=== PATIENT | female | born 1980 | race Caucasian/White ===

== ENCOUNTER → 2016-10-07 | Outpatient (CLI) | payer OTHER | LOC: EDBD → MW.LAB 11:51 | PROVIDERS: ATTEND Obstetrics & Gynecology | DX: Z31.9 Encounter for procreative management, unspecified (principal); N96 Recurrent pregnancy loss | CPT/HCPCS: 36415; 82670; 83001; 83002; 84146; 84443; 85613; 85730; 86147; 86762 ==

== ENCOUNTER 2016-10-08 06:23 | Day surgery (SDC) | payer OTHER ==
[~2016-10-08 06:23] MED LIST: Lactated Ringers 1,000 ML IV SCH
[2016-10-08] MEDS ORDERED: Propofol 200 MG/20 ML SDV ONE ×2 (07:18→08:03)
[2016-10-08] MEDS ORDERED: Midazolam 1 MG/ML 2 ML SDV ONE (07:18)
[2016-10-08] MEDS ORDERED: fentaNYL 100 MCG/2 ML SDV ONE (07:18)
--- NOTE | 2016-10-08 07:27 | PCM.PREANE ---
Preanesthetic Assessment - Procedure Proposed Procedure: EGD and Colonoscopy - Anesthesia/Transfusion/Family Hx Anesthesia History: No Prior Anesthesia Transfusion History: No Prior Transfusion(s) Intubation History: Unknown - Review of Systems General: No Symptoms Pulmonary: No Symptoms Cardiovascular: No Symptoms Gastrointestinal: No symptoms, Other (GERD - treated, bloating ?IBS) Neurological: No Symptoms Other: Reports: Depression, Anxiety - Physical Assessment NPO Status Date: 10/07/16 NPO Status Time: 23:30 O2 Sat by Pulse Oximetry: 97 Respiratory Rate: 16 Vital Signs: Last Vital Signs Temp 97.2 F 10/08/16 06:52 Pulse 76 10/08/16 06:52 Resp 16 10/08/16 06:52 BP 120/86 10/08/16 06:52 Pulse Ox 97 10/08/16 06:52 Height: 5 ft 4.5 in Weight: 161 lb ASA Class: 2 Mental Status: Alert & Oriented x3 Airway Class: Mallampati = 1 Dentition: Reports: Normal Dentition Thyro-Mental Finger Breadths: 3 Mouth Opening Finger Breadths: 3 ROM/Head Extension: Full Lungs: Clear to auscultation, Normal respiratory effort Cardiovascular: Regular Rate, Regular Rhythm, No Murmurs - Lab Values: Laboratory Last Values HCG, Qual NEGATIVE (NEG) 10/08/16 06:36 - Allergies Allergies/Adverse Reactions: Allergies Allergy/AdvReac Type Severity Reaction Status Date / Time No Known Allergies Allergy Verified 01/24/15 18:59 - Blood Blood Available: No Product(s) Available: None - Anesthesia Plan Pre-Op Medication Ordered: None - Acknowledgements Anesthesia Type Planned: MAC Pt an Appropriate Candidate for the Planned Anesthesia: Yes Alternatives and Risks of Anesthesia Discussed w Pt/Guardian: Yes Pt/Guardian Understands and Agrees with Anesthesia Plan: Yes PreAnesthesia Questionnaire Gastrointestinal History: Reports: GERD Psychiatric History: Reports: Anxiety, Depression Dermatologic History: Reports: Psoriasis - Past Surgical History Head Surgeries/Procedures: Reports: None - SUBSTANCE USE Smoking Status *Q: Never Smoker Recreational Drug Use History: No - HOME MEDS Home Medications: Home Meds Escitalopram Oxalate 10 mg PO DAILY 10/03/16 [History] Pantoprazole Sodium 40 mg PO DAILY 10/03/16 [History] metroNIDAZOLE [Vandazole 0.75% Gel] 1 applic TOP BID 10/03/16 [History] - CURRENT (IN HOUSE) MEDS Current Meds: Current Medications Lactated Ringer's (Ringers, Lactated) 1,000 mls @ 125 mls/hr IV ASDIRECTED [facility] Last Admin: 10/08/16 06:52 Dose: 125 mls/hr Discontinued Medications Fentanyl (Sublimaze) Confirm Administered Dose 100 mcg .ROUTE .STK-MED ONE Stop: 10/08/16 07:19 Midazolam HCl (Versed 1 Mg/Ml) Confirm Administered Dose 2 mg .ROUTE .STK-MED ONE Stop: 10/08/16 07:19 Propofol (Diprivan 20 Ml) Confirm Administered Dose 200 mg .ROUTE .STK-MED ONE Stop: 10/08/16 07:19 Preanesthetic Assessment - ANESTHESIA/TRANSFUSION/FAMILY HX Family History of Anesthesia Reaction: No - PHYSICAL ASSESSMENT O2 Sat by Pulse Oximetry: 97 RR: 16 Vital Signs: Last Vital Signs Temp 97.2 F 10/08/16 06:52 Pulse 76 10/08/16 06:52 Resp 16 10/08/16 06:52 BP 120/86 10/08/16 06:52 Pulse Ox 97 10/08/16 06:52 Height: 5 ft 4.5 in Weight: 161 lb NPO Status Date: 10/07/16 NPO Status Time: 23:30 - LAB Values: Laboratory Last Values HCG, Qual NEGATIVE (NEG) 10/08/16 06:36 - ALLERGIES Allergies/Adverse Reactions: Allergies Allergy/AdvReac Type Severity Reaction Status Date / Time No Known Allergies Allergy Verified 01/24/15 18:59
--- NOTE | 2016-10-08 08:26 | PCM.OPNOTE ---
- General Post-Op/Procedure Note Date of Surgery/Procedure: 10/08/16 Operative Procedure(s): egd w bx. colonoscopy w bx Findings: see dict [id number] Pre Op Diagnosis: dysphagia and change in bowel habits Post-Op Diagnosis: Same Anesthesia Technique: Moderate sedation Primary Surgeon: Buster Ray Pathology: egd bx and aphthus ulcer Complications: None Condition: Good
[2016-10-08 08:51] VITALS: BP 100/60
--- NOTE | 2016-10-08 08:59 | PCM.POSTAN ---
POST ANESTHESIA ASSESSMENT - MENTAL STATUS Mental Status: alert, oriented - RESPIRATORY Respiratory Status: respiratory rate WNL, airway patent, O2 saturation stable - CARDIOVASCULAR CV Status: pulse rate WNL, blood pressure stable - GASTROINTESTINAL GI Status: no symptoms - PAIN Pain Score: 0 - POST OP HYDRATION Hydration Status: adequate & stable
--- NOTE | 2016-10-08 09:03 | PCM48HPAN ---
Post Anesthesia Note - EVALUATION WITHIN 48HRS OF ANESTHETIC Vital Signs in Normal Range: Yes Patient Participated in Evaluation: Yes Respiratory Function Stable: Yes Airway Patent: Yes Cardiovascular Function Stable: Yes Hydration Status Stable: Yes Pain Control Satisfactory: Yes Nausea and Vomiting Control Satisfactory: Yes Mental Status Recovered: Yes
--- NOTE | 2016-10-08 14:21 | OR ---
SURGEON: Buster Ray MD DATE OF PROCEDURE: 10/08/2016 PREOPERATIVE DIAGNOSES: Change in bowel habit, abdominal pain, dysphagia. POSTOPERATIVE DIAGNOSES: 1. Esophagogastroduodenoscopy diagnosis is acid reflux. 2. Colonoscopy diagnosis is aphthous ulcer. PROCEDURES PERFORMED: 1. Esophagogastroduodenoscopy with biopsy. 2. Colonoscopy with biopsy. DESCRIPTION OF PROCEDURE: EGD: The patient was taken to the endoscopy room, and with the SUPERVISOR [employer]ING REPAIR, Diprivan was administered. A well-lubricated EGD scope was gently inserted through the oropharynx, down the esophagus, passing through the gastroesophageal junction, into the stomach. The mucosa was examined upon the passage. Any etiology will be noted. Once in the stomach, we continued to advance to the distal antrum, passed through the pylorus into the second portion of the duodenum. Again, the mucosa was examined for any abnormality and etiology. The scope was then retrieved back to the stomach and then retroflexed to look at the fundus of the stomach. If a biopsy was indicated, we will biopsy the antrum, body, and gastroesophageal junction. The air will be sucked out while the scope is retrieved to reduce the patient's discomfort. The patient tolerated the procedure well. There were no intraoperative complications. Dr. Ray was present through the whole procedure. Prior to surgery, a time-out had been called, the patient identified, procedure identified and antibiotic administered. Colonoscopy: The patient was taken to the endoscopy room. A time out was called, patient identified, and procedure identified. Diprivan was then administrated. Patient went from awake to sleep, hearing doctor talking or door closing is normal. Perineum inspection and digital examination were then performed. A well-lubricated colonoscope was gently inserted through the rectum, advanced past the rectosigmoid junction, the descending colon, splenic flexure, transverse colon, hepatic flexure, ascending colon, arrived to the cecum. Cecum was identified as dictated in the finding. Then the scope was carefully withdrawn while attention was paid to the mucosal surface for any abnormality. Air will be sucked out during the scope withdrawal. At the rectum, retroflexed to examine any rectal diseases, fistula or hemorrhoids. During mucosal examination, and biopsy performed on abnormal appearance and random biopsy too for abd pain. Patient tolerated procedure well. There were no intraoperative complications, and Dr. Ray was present throughout the whole procedure. FINDINGS: EGD finding: The patient is easily sedated with [employer]PAIR and Diprivan. The patient is soundly snoring and oropharynx is grossly normal in appearance. No stricture narrow varicosity or inflammation. Distal esophagus GE junction at 40 shows mild change, salmon color change suggests mild acid reflux. Stomach rugae is very healthy in looking and no bile, no food particles. An antrum is slightly inflamed and no ulceration or blood. Duodenum was grossly normal in appearance. The scope was retrieved back to the stomach. Retroflexed to look at the fundus and stomach. There is no hiatal hernia or other etiology. Biopsy done at the antrum, body, and GE junction at 40 and sucked out the air while scope pulling out. Colonoscopy findin. The patient is easily sedated with SU[employer]PAIR and Diprivan. The patient is soundly snoring. 2. Bowel prep is average to better than average, very little liquid stool. No semi-formed stool. 3. The patient's colon was rather straight forward. Cecum indicated by ileocecal fold, one-to-one indentation, light emittance. Appendix orifice is not observed. Mucosa was examined upon scope pulling out and the patient does not have diverticulosis, polyp, mass, growth, stricture, ulceration, bleeding, AV malformation. The patient has many white dots in the right colon, looked like it is aphthous ulcer. One biopsy done and also random biopsy done on colon and then going all the way to the rectum, the patient has mild external hemorrhoid. No internal hemorrhoids. The patient would benefit from repeat colonoscopy 10 years from today or if clinically indicated otherwise or if the biopsy indicated otherwise. As always, thank you for the kind referral. WILDER CARR /[id number] JARED
== END 2016-10-08 09:00 | disposition home or self-care (01) ==
LOC: EDBD → MW.SDS 06:23
PROVIDERS: ATTEND Surgery
PROC: 0DB48ZX Excision of Esophagogastric Junction, Via Natural or Artificial Opening Endoscopic, Diagnostic (ICD-10-PCS; principal; 2016-10-08)
PROC: 0DB68ZX Excision of Stomach, Via Natural or Artificial Opening Endoscopic, Diagnostic (ICD-10-PCS; 2016-10-08)
PROC: 0DBE8ZX Excision of Large Intestine, Via Natural or Artificial Opening Endoscopic, Diagnostic (ICD-10-PCS; 2016-10-08)
DX: K29.50 Unspecified chronic gastritis without bleeding (principal); J30.9 Allergic rhinitis, unspecified; K21.9 Gastro-esophageal reflux disease without esophagitis; Z79.899 Other long term (current) drug therapy
CPT/HCPCS: 43239; 45380; 84703; 88305; 88312; J2250; J3010; J7120; 00740; J2704

== ENCOUNTER → 2016-10-14 | Outpatient (CLI) | payer OTHER ==
[~2016-10-14] MED LIST changes: +Iopamidol 612 MG/ML 30 ML SDV IUTERINE STA; -Lactated Ringers 1,000 ML IV SCH
--- NOTE | 2016-10-14 16:05 | US ---
EXAMINATION: Hysterosalpingogram. HISTORY: Infertility. Evaluate for tubal patency. PROCEDURE/FINDINGS: Written informed consent was obtained from the patient. Perineum was prepped wit h Betadine and after placement of vaginal speculum, the cervix was prepped with Betadine. A 5 Moldovan catheter was placed and after inflation of the balloon, 15 cc of contrast was injected until cornua l regions are filled and multiple views of the pelvis are obtained. The uterine cavity is normal in configuration. No suspicious filling defects are seen. Small cystic spaces and diverticula are noted within the isthmic and ampullary regions of the fallop tammi tubes bilaterally. The ampulla and infundibulum of the left leading to it is notably dilated. Th ere is free spillage noted on the right, no free spillage is noted on the left. IMPRESSION: 1. Bilateral salpingitis isthmica nodosa. 2. Severe hydrosalpinx of the mid to infundibular left fallopian tube. 3. Free spillage of contrast is noted on the right only.
== END ==
LOC: EDBD 10:26 → MW.DI 10:26
PROVIDERS: ATTEND Obstetrics & Gynecology
DX: Z31.9 Encounter for procreative management, unspecified (principal); N70.11 Chronic salpingitis
CPT/HCPCS: 58340; 74740; C2628; Q9967

== ENCOUNTER 2016-11-21 07:59 | Day surgery (SDC) | payer OTHER ==
[2016-11-20 11:57] LABS: CHLORIDE,CL 104 mmol/L (98-110); SODIUM,NA 139 mmol/L (136-146)
[~2016-11-21 07:59] MED LIST changes: -Iopamidol 612 MG/ML 30 ML SDV IUTERINE STA; +Lactated Ringers 1,000 ML IV SCH; +Sodium Chloride 0.9% 10 ML Syringe FLUSH PRN; +Sodium Chloride 0.9% 2.5 ML Syringe FLUSH PRN
--- NOTE | 2016-11-21 08:34 | PCM.PREANE ---
Preanesthetic Assessment - Anesthesia/Transfusion/Family Hx Anesthesia History: Prior Anesthesia Without Reaction Family History of Anesthesia Reaction: No Transfusion History: No Prior Transfusion(s) Intubation History: Unknown - Review of Systems General: No Symptoms Pulmonary: No Symptoms Cardiovascular: No Symptoms Gastrointestinal: Abdominal pain Neurological: No Symptoms Other: Reports: None - Physical Assessment O2 Sat by Pulse Oximetry: 94 Respiratory Rate: 16 Vital Signs: Last Vital Signs Temp 36.1 C 11/21/16 08:07 Pulse 70 11/21/16 08:07 Resp 16 11/21/16 08:07 BP 113/67 11/21/16 08:07 Pulse Ox 94 L 11/21/16 08:07 Height: 1.64 m Weight: 73.936 kg ASA Class: 2 Mental Status: Alert & Oriented x3 Airway Class: Mallampati = 2 Dentition: Reports: Normal Dentition Thyro-Mental Finger Breadths: 3 Mouth Opening Finger Breadths: 3 ROM/Head Extension: Full Lungs: Clear to auscultation, Normal respiratory effort Cardiovascular: Regular Rate, Regular Rhythm - Lab Values: Laboratory Last Values WBC 5.64 K/uL (4.0-11.0) 11/20/16 08:48 RBC 4.48 M/uL (4.30-5.90) 11/20/16 08:48 Hgb 13.6 g/dL (12.0-16.0) 11/20/16 08:48 Hct 40.9 % (36.0-46.0) 11/20/16 08:48 MCV 91.3 fL (80.0-98.0) 11/20/16 08:48 MCH 30.4 pg (27.0-32.0) 11/20/16 08:48 MCHC 33.3 g/dL (31.0-37.0) 11/20/16 08:48 RDW Std Deviation 42.7 fl (28.0-62.0) 11/20/16 08:48 RDW Coeff of Gill 13 % (11.0-15.0) 11/20/16 08:48 Plt Count 299 K/uL (150-400) 11/20/16 08:48 MPV 10.50 fL (7.40-12.00) 11/20/16 08:48 Nucleated RBC % 0.0 /100WBC 11/20/16 08:48 Nucleated RBCs # 0 K/uL 11/20/16 08:48 Sodium 139 mmol/L (136-146) 11/20/16 11:18 Potassium 4.5 mmol/L (3.5-5.1) 11/20/16 11:18 Chloride 104 mmol/L (98-110) 11/20/16 11:18 Carbon Dioxide 25 mmol/L (21-31) 11/20/16 11:18 BUN 11 mg/dL (6.0-23.0) 11/20/16 11:18 Creatinine 1.0 mg/dL (0.6-1.5) 11/20/16 11:18 Est Cr Clr Drug Dosing 68.57 mL/min 11/20/16 11:18 Estimated GFR (MDRD) > 60.0 ml/min 11/20/16 11:18 Glucose 95 mg/dL (60-110) 11/20/16 11:18 Calcium 9.6 mg/dL (8.8-10.8) 11/20/16 11:18 HCG, Qual NEGATIVE (NEG) 11/20/16 11:18 Blood Type O POSITIVE 11/20/16 11:18 Antibody Screen NEGATIVE 11/20/16 11:18 - Allergies Allergies/Adverse Reactions: Allergies Allergy/AdvReac Type Severity Reaction Status Date / Time No Known Allergies Allergy Verified 01/24/15 18:59 - Blood Blood Available: No - Anesthesia Plan Pre-Op Medication Ordered: None - Acknowledgements Anesthesia Type Planned: General Anesthesia Pt an Appropriate Candidate for the Planned Anesthesia: Yes Alternatives and Risks of Anesthesia Discussed w Pt/Guardian: Yes Pt/Guardian Understands and Agrees with Anesthesia Plan: Yes PreAnesthesia Questionnaire HEENT History: Reports: Allergic Rhinitis Gastrointestinal History: Reports: GERD GAMING DIRECTOR History: Reports: Spontaneous , Other (See Below) (infertility) Psychiatric History: Reports: Anxiety, Depression Dermatologic History: Reports: Psoriasis - Past Surgical History Head Surgeries/Procedures: Reports: None GI Surgical History: Reports: Colonoscopy, EGD - SUBSTANCE USE Smoking Status *Q: Never Smoker Recreational Drug Use History: No - HOME MEDS Home Medications: Home Meds Escitalopram Oxalate 10 mg PO DAILY 10/03/16 [History] Pantoprazole Sodium 40 mg PO DAILY 10/03/16 [History] - CURRENT (IN HOUSE) MEDS Current Meds: Current Medications Lactated Ringer's (Ringers, Lactated) 1,000 mls @ 125 mls/hr IV ASDIRECTED [facility] Last Admin: 11/21/16 08:10 Dose: 125 mls/hr Sodium Chloride (Saline Flush) 10 ml FLUSH ASDIRECTED PRN PRN Reason: Keep Vein Open Sodium Chloride (Saline Flush) 2.5 ml FLUSH ASDIRECTED PRN PRN Reason: Keep Vein Open
[2016-11-21] MEDS ORDERED: Methylene Blue 50 MG/10 ML Ampule IV ONE ×2 (09:59→10:00)
[2016-11-21] MEDS ORDERED: Propofol 200 MG/20 ML SDV ONE (10:03)
[2016-11-21] MEDS ORDERED: Lidocaine 2% 5 ML SDV ONE (10:03)
[2016-11-21] MEDS ORDERED: fentaNYL 250 MCG/5 ML SDV ONE (10:03)
[2016-11-21] MEDS ORDERED: Midazolam 1 MG/ML 2 ML SDV ONE (10:03)
[2016-11-21] MEDS ORDERED: Rocuronium 10 MG/ML 10 ML Syringe ONE (10:04)
[2016-11-21] MEDS ORDERED: Ketorolac 30 MG/ML SDV ONE (10:04)
[2016-11-21] MEDS ORDERED: Ondansetron 4 MG/2 ML SDV ONE (10:04)
[2016-11-21] MEDS ORDERED: Neostigmine Methylsulfate 1 MG/ML 5 ML Syringe ONE (10:04)
[2016-11-21] MEDS ORDERED: fentaNYL 100 MCG/2 ML SDV ONE (11:01)
[2016-11-21] MEDS ORDERED: Octyl 2-Cyanoacrylate 1 Tube ONE (11:32)
[2016-11-21] MEDS ORDERED: Acetaminophen/oxyCODONE 325-5 MG Tab PO PRN ×2 (11:35)
[2016-11-21] MEDS ORDERED: Ketorolac 30 MG/ML SDV IVPUSH ONE (11:35)
[2016-11-21] MEDS ORDERED: Ondansetron 4 MG/2 ML SDV IVPUSH PRN (11:35)
[2016-11-21] MEDS ORDERED: Morphine 4 MG/ML Syringe IVPUSH PRN (11:35)
[2016-11-21] MEDS ORDERED: Promethazine 25 MG/ML SDV IM PRN (11:35)
[2016-11-21] MEDS ORDERED: Morphine 2 MG/ML Syringe IVPUSH PRN (11:35)
[2016-11-21] MEDS ORDERED: Ketorolac 30 MG/ML SDV IVPUSH PRN (11:35)
--- NOTE | 2016-11-21 11:40 | PCM.OPNOTE ---
- General Post-Op/Procedure Note Date of Surgery/Procedure: 11/21/16 Operative Procedure(s): Dignostis laparoscopy Findings: pelvic adhesion Pre Op Diagnosis: Pelvic pain Post-Op Diagnosis: Same Anesthesia Technique: General ET tube Primary Surgeon: Wilner Clements Digital Marketing Assistant: Smitha Henderson Complications: None Condition: Good
--- NOTE | 2016-11-21 11:41 | PCM.DCSUM1 ---
Discharge Summary - Discharge Data Discharge Date: 11/21/16 Discharge Disposition: Home, Self-Care 01 Condition: Good - Patient Summary/Data Operative Procedure(s) Performed: Dignostis laparoscopy - Patient Instructions Diet: Usual Diet as Tolerated Showering/Bathing: May Shower Wound/Incision Care: Keep Operative Site/Wound Site Clean and Dry Notify Provider of: Fever, Increased Pain, Swelling and Redness, Nausea and/or Vomiting - Discharge Plan Home Medications: Home Meds Escitalopram Oxalate 10 mg PO DAILY 10/03/16 [History] Pantoprazole Sodium 40 mg PO DAILY 10/03/16 [History] - General Info Date of Service: 11/21/16 Functional Status: Reports: pain controlled - Review of Systems General: Reports: No Symptoms HEENT: Reports: no symptoms Pulmonary: Reports: no symptoms Cardiovascular: Reports: No Symptoms Gastrointestinal: Reports: No symptoms Genitourinary: Reports: no symptoms Musculoskeletal: Reports: no symptoms Skin: Reports: no symptoms Neurological: Reports: No Symptoms Psychiatric: Reports: no symptoms - Patient Data Vitals - Most Recent: Last Vital Signs Temp 36.1 C 11/21/16 08:07 Pulse 70 11/21/16 08:07 Resp 16 11/21/16 08:34 BP 113/67 11/21/16 08:07 Pulse Ox 94 L 11/21/16 08:34 Weight - Most Recent: 73.936 kg Lab Results - Last 24 hrs: Laboratory Results - last 24 hr 11/20/16 11/20/16 11/20/16 Range/Units 11:18 11:18 11:18 Sodium 139 (136-146) mmol/L Potassium 4.5 (3.5-5.1) mmol/L Chloride 104 (98-110) mmol/L Carbon Dioxide 25 (21-31) mmol/L BUN 11 (6.0-23.0) mg/dL Creatinine 1.0 (0.6-1.5) mg/dL Est Cr Clr Drug Dosing 68.57 mL/min Estimated GFR (MDRD) > 60.0 ml/min Glucose 95 (60-110) mg/dL Calcium 9.6 (8.8-10.8) mg/dL HCG, Qual NEGATIVE (NEG) Blood Type O POSITIVE Antibody Screen NEGATIVE Med Orders - Current: Current Medications Lactated Ringer's (Ringers, Lactated) 1,000 mls @ 125 mls/hr IV ASDIRECTED [facility] Last Admin: 11/21/16 08:10 Dose: 125 mls/hr Ketorolac Tromethamine (Toradol) 30 mg IVPUSH Q6H PRN PRN Reason: Pain (severe 7-10) Stop: 11/26/16 11:35 Morphine Sulfate (Morphine) 2 mg IVPUSH Q2H PRN PRN Reason: Pain (severe 7-10) Morphine Sulfate (Morphine) 4 mg IVPUSH Q2H PRN PRN Reason: Pain (severe 7-10) Ondansetron HCl (Zofran) 4 mg IVPUSH Q6H PRN PRN Reason: Nausea/Vomiting Oxycodone/Acetaminophen (Percocet 325-5 Mg) 1 tab PO Q4H PRN PRN Reason: Pain (moderate 4-6) Oxycodone/Acetaminophen (Percocet 325-5 Mg) 2 tab PO Q4H PRN PRN Reason: Pain (moderate 4-6) Promethazine HCl (Phenergan) 25 mg IM Q6H PRN PRN Reason: Nausea/Vomiting Sodium Chloride (Saline Flush) 10 ml FLUSH ASDIRECTED PRN PRN Reason: Keep Vein Open Sodium Chloride (Saline Flush) 2.5 ml FLUSH ASDIRECTED PRN PRN Reason: Keep Vein Open Discontinued Medications Fentanyl (Sublimaze) Confirm Administered Dose 250 mcg .ROUTE .STK-MED ONE Stop: 11/21/16 10:04 Fentanyl (Sublimaze) Confirm Administered Dose 100 mcg .ROUTE .STK-MED ONE Stop: 11/21/16 11:02 Glycopyrrolate () Confirm Administered Dose 1 mg .ROUTE .STK-MED ONE Stop: 11/21/16 10:05 Ketorolac Tromethamine (Toradol) Confirm Administered Dose 30 mg .ROUTE .STK- MED ONE Stop: 11/21/16 10:05 Ketorolac Tromethamine (Toradol) 30 mg IVPUSH ONETIME ONE Stop: 11/21/16 11:36 Lidocaine (Xylocaine-Mpf 2%) Confirm Administered Dose 10 ml .ROUTE .STK-MED ONE Stop: 11/21/16 10:04 Methylene Blue (Provayblue) Confirm Administered Dose 50 mg IV .STK-MED ONE Stop: 11/21/16 10:00 Methylene Blue (Provayblue) Confirm Administered Dose 50 mg IV .STK-MED ONE Stop: 11/21/16 10:01 Midazolam HCl (Versed 1 Mg/Ml) Confirm Administered Dose 2 mg .ROUTE .STK-MED ONE Stop: 11/21/16 10:04 Neostigmine Methylsulfate (Neostigmine) Confirm Administered Dose 5 mg .ROUTE .STK-MED ONE Stop: 11/21/16 10:05 Octyl Cyanoacrylate (Dermabond Advance) Confirm Administered Dose 1 applic .ROUTE .STK-MED ONE Stop: 11/21/16 11:33 Ondansetron HCl (Zofran) Confirm Administered Dose 4 mg .ROUTE .STK-MED ONE Stop: 11/21/16 10:05 Propofol (Diprivan 20 Ml) Confirm Administered Dose 400 mg .ROUTE .STK-MED ONE Stop: 11/21/16 10:04 Rocuronium [place] (Zemuron) Confirm Administered Dose 100 mg .ROUTE .STK-MED ONE Stop: 11/21/16 10:05 - Exam General: Reports: alert, oriented HEENT: Reports: Pupils equal, Pupils reactive, EOMI, Mucous membr. moist/pink Neck: Reports: supple Lungs: Reports: Clear to auscultation, Normal respiratory effort Cardiovascular: Reports: Regular Rate, Regular Rhythm Abdomen: Reports: bowel sounds present, soft, no tenderness, no distension (Female) Exam: Normal External Exam, Normal Speculum Exam, Normal Bimanual Exam Rectal (Female) Exam: Normal Exam, Normal Rectal Tone Back Exam: Reports: Normal Inspection, Full Range of Motion Extremities: Reports: no edema, normal pulses Skin: Reports: warm, dry, intact Wound/Incisions: Reports: healing well Neurological: Reports: no new focal deficit Psy/Mental Status: Reports: alert, normal affect, normal mood *Q Meaningful Use (DIS) - VTE *Q VTE Criteria *Q: - Stroke *Q Stroke Criteria *Q: - AMI *Q AMI Criteria *Q:
[2016-11-21] MEDS ORDERED: fentaNYL 100 MCG/2 ML SDV IVPUSH PRN (12:06)
[2016-11-21 13:38] VITALS: BP 108/64
--- NOTE | 2016-11-21 18:22 | OR ---
SURGEON: Wilner Clements MD DATE OF PROCEDURE: 11/21/2016 PREOPERATIVE DIAGNOSIS: Pelvic pain, infertility. POSTOPERATIVE DIAGNOSIS: Pelvic pain, infertility. OPERATION PERFORMED: Multiple puncture diagnostic laparoscopy, extensive lysis of adhesion, chromotubation, left salpingectomy. DIPLOMATIC INTERPRETER: ERIN Mesa. ANESTHESIA: General endotracheal intubation, Dr. Raya and Juan Ramon Greene. ESTIMATED BLOOD LOSS: Less than 25 mL. COMPLICATIONS: None. FINDINGS: The patient had extensive pelvic adhesion from probably previous pelvic inflammatory disease. The right tube after lysing of adhesions and reasonably freeing it, there was no spillage of the dye from the tubes. The left tube, there was extensive pelvic adhesions and there was hydrosalpinx and was totally destroyed requiring left salpingectomy. The uterus was normal. Both ovaries were essentially normal. The patient was at high risk of tubal once she achieves spontaneous and she probably could be a good candidate for in-vitro fertilization. INDICATION: This patient is referred to our clinic for evaluation of infertility and pelvic pain. By ultrasound, she had a left hydrosalpinx. The patient is admitted for a diagnostic laparoscopy with removing of the left tube because of the hydrosalpinx and lysing of adhesion. PROCEDURE IN DETAIL: The patient was brought to the OR, properly identified, and after adequate level of anesthesia, the patient was placed in lithotomy position, prepped and draped in sterile fashion as usual. Straight catheter was used to empty the bladder and the Lissa manipulator was placed in the uterus for manipulation and injection of the dye. Procedure shifted abdominally. Stab wound done beneath the umbilicus. The Veress needle was placed in the peritoneal cavity and that cavity insufflated 6 L of carbon dioxide. The skin incision large to accommodate 5 mm trocar and then the scope through it utilizing the Visiport technique to enter the abdomen. Once we did that, a 10-12 trocar placed in the left iliac fossa and 5 mm trocar in the right iliac fossa. We started by doing a thorough pelvic irrigation and exploring the pelvis. The patient did have extensive adhesion around the left tubes and ovary and the left tube was totally destroyed with a rather large hydrosalpinx requiring removing the left tubes. The right tube was reasonably looking okay on the outside, however, there was adhesion with omentum and that was lysed without any problem and the left tube and the right tube and ovary freed from adhesion; however, doing a chromotubation there was no spillage of the dye from the tubes and could represent a tubal occlusion. After exploring the pelvis and assessed the above noted finding, we used a fine scissor dissection to lyse the adhesion and also I used the Harmonic scalpel judiciously to lyse the adhesion and using the Harmonic scalpel, the left tube was removed and achieving left salpingectomy without any problem. Then after lysing all the adhesions from the pelvis and reasonably freeing the right tube chromotubation attempted, there was no spillage of the dye from the right tube at this time, which is possibly could indicate tubal occlusion. After that thorough irrigation of the pelvis, there was no oozing, no bleeding, and the procedure was ended. The instrument hardware was retrieved from the abdomen and the vagina and the multiple laparoscopic incision was closed in layer. The patient tolerated the procedure well, went to recovery room in stable and general condition. ALISE / LILLY /[id number]
== END 2016-11-21 12:13 | disposition home or self-care (01) ==
LOC: MW.SDS 07:59
PROVIDERS: ATTEND Obstetrics & Gynecology
PROC: 0UT64ZZ Resection of Left Fallopian Tube, Percutaneous Endoscopic Approach (ICD-10-PCS; principal; 2016-11-21)
DX: N70.11 Chronic salpingitis (principal); N73.6 Female pelvic peritoneal adhesions (postinfective); N97.9 Female infertility, unspecified; K21.9 Gastro-esophageal reflux disease without esophagitis; Z79.899 Other long term (current) drug therapy
CPT/HCPCS: 36415; 58661; 80048; 84703; 85027; 86850; 86900; 86901; 88305; A9270; J1885; J2250; J2405; J3010; J7120; Q9968; 00840; J2704

== ENCOUNTER 2021-04-22 12:28 | Emergency (ER) | payer BC, OTHER ==
--- NOTE | 2021-04-22 13:46 | EDM.PDOC ---
ED HPI GENERAL MEDICAL PROBLEM - General Chief Complaint: Respiratory Problem Stated Complaint: COVID SYMPTOMS Time Seen by Provider: 04/22/21 13:27 Source of Information: Reports: Patient History Limitations: Reports: No Limitations - History of Present Illness INITIAL COMMENTS - FREE TEXT/NARRATIVE: HISTORY AND PHYSICAL: History of present illness: The patient is a 1-year-old female who presents to the emergency department for complaints of a known positive Covid test that was done and it in [facility] ER. The patient states that the test was done on Friday and her had some kind of heart attack after being diagnosed with COVID and required to be flown out. The patient states that she thought she should follow-up to see if there is any kind of treatment for her or her daughter. The patient has Covid symptoms such as decreased appetite and general malaise. The patient has not been taking any kind of Motrin or Tylenol but has been taking Mucinex. The dewey ent is a prediabetic and takes Metformin. She has no other risk factors. The patient denies any kind of shortness of breath. She states that she has a mild cough. Patient denies any fever, chills, headache, change in vision, syncope or near syncope. Denies any chest pain, or back pain. Denies any abdominal pain, nausea, vomiting, diarrhea, constipation or dysuria. Has not noted any blood in urine or stool. Review of systems: As per history of present illness and below otherwise all systems reviewed and negative. Past medical history: As per history of present illness and as reviewed below otherwise noncontributory. Surgical history: As per history of present illness and as reviewed below otherwise noncontributory. Social history: See social history for further information Family history: As per history of present illness and as reviewed below otherwise noncontributory. Physical exam: General: Well developed and well nourished. Alert and orientated x 3. Nontoxic in appearance and in no acute distress. Vital signs are stable and have been reviewed by me. Nursing notes were reviewed. HEENT: Atraumatic, normocephalic, pupils equal and reactive bilaterally, negative for conjunctival pallor or scleral icterus, mucous membranes moist, TMs normal bilaterally, throat clear, neck supple, nontender, trachea midline. No drooling or trismus noted. No meningeal signs. No hot potato voice noted. Lungs: Clear to auscultation bilaterally. No wheezes, rales, or rhonchi. Chest nontender. Normal work of breathing, no accessory muscles used. Heart: S1S2, regular rate and rhythm without overt murmur, gallops, or rubs. No JVD. No peripheral edema Abdomen: Soft, nondistended, nontender. Normoactive bowel sounds. Negative for masses or costovertebral tenderness. Skin: Intact, warm, dry. No lesions or rashes noted. Hematologic: No petechiae or purpra. Mucosa appropriate color and normal nail bed color and refill. Extremities: Atraumatic, moves all extremities per self without difficulty or deficits, negative for cords or calf pain. Neurovascular unremarkable. Neuro: Awake, alert, oriented. Cranial nerves II through XII unremarkable. Cerebellum unremarkable. Motor and sensory unremarkable throughout. Exam nonfocal. Psychiatric: Mood and affect are appropriate. Normal thought process. Answering questions appropriately. Notes: *This patient was seen and evaluated during the 2019 SARS-CoV-2 novel coronavirus pandemic period. Community viral transmission is ongoing at time of this encounter and the emergency department is operating under pandemic response procedures. Stated above the patient is a 41-year-old female who presents to the emergency room with positive Covid. The patient's symptoms are relatively mild and she is doing quite well. She is just concerned due to her 's reaction to COVID- 19 for which he had to be flown out due to type of heart condition. The patient is prediabetic but has no other risk factors. She does not meet the monoclonal antibody criteria. I educated the patient on ported measures and symptoms control. The patient states that she has not been taking Tylenol or Motrin but has been taking Mucinex. The patient verbalized understanding of not qualifying for the monoclonal antibodies. I did instruct the patient to get an portable oxygen saturation device to monitor her saturation. I instructed her to return to the emergency department if her oxygen saturation dips below 90%. I have talked with the patient about today's findings, in addition to providing specific details for plan of care. Reassessment at the time of disposition demonstrates that the patient is in no acute distress. The patient is stable for discharge, counseling was provided and we discussed in great detail signs and symptoms that would prompt them to return to the Emergency Department. Medication, follow up and supportive care measures were reviewed and discussed. Voices understanding and is agreeable to plan of care. Denies any further questions or concerns at this time. Impression: COVID-19 Plan: 1. You were evaluated today on an emergent basis. Your complaints of Covid positive and possible treatment was evaluated. You are prediabetic and did not have significant symptoms or risk factors to warrant a monoclonal antibody. I would advise you to get plenty fluids and rest. You can use Tylenol or Motrin as needed for the aches and pain of Covid. As we discussed you need to get a portable oxygen saturation device to monitor your oxygen level. If it drifts below 90% you need to come into the emergency department. You need to continue your self-isolation. 2. You can alternate Tylenol and ibuprofen as needed for pain and fever management. 3. We encourage you to follow up with your primary care provider and/or recommended specialist in the next few days for re-evaluation and further care/management. 4. If your symptoms should worsen, new symptoms develop or any of the signs and symptoms we discussed should arise please return to the emergency room or call 911 (if needed). Definitive disposition and diagnosis as appropriate pending reevaluation and review of above. - Related Data Allergies Allergy/AdvReac Type Severity Reaction Status Date / Time No Known Allergies Allergy Verified 04/22/21 13:19 Home Meds: Home Meds . 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 ED EXAM, GENERAL - Physical Exam Exam: See Below (See dictation) Course - Vital Signs Last Recorded V/S: Last Vital Signs Temp 99.1 F 04/22/21 13:16 Pulse 88 04/22/21 13:55 Resp 18 04/22/21 13:55 BP 130/76 04/22/21 13:55 Pulse Ox 96 04/22/21 13:55 Departure - Departure Time of Disposition: 13:45 Disposition: Home, Self-Care 01 Condition: Good Clinical Impression: COVID-19 - Discharge Information *PRESCRIPTION DRUG MONITORING PROGRAM REVIEWED*: Not Applicable *COPY OF PRESCRIPTION DRUG MONITORING REPORT IN PATIENT JAMES: Not Applicable Instructions: COVID-19: What to Do If You Are Sick- [facility] (09/13/2020) Referrals: Fátima Frank, [Primary Care Provider] - Forms: ED Department Discharge Additional Instructions: The following information is given to patients seen in the emergency department who are being discharged to home. This information is to outline your options for follow-up care. We provide all patients seen in our emergency department with a follow-up referral. The need for follow-up, as well as the timing and circumstances, are variable depending upon the specifics of your emergency department visit. If you don't have a primary care physician on staff, we will provide you with a referral. We always advise you to contact your personal physician following an emergency department visit to inform them of the circumstance of the visit and for follow-up with them and/or the need for any referrals to a consulting specialist. The emergency department will also refer you to a specialist when appropriate. This referral assures that you have the opportunity for follow-up care with a specialist. All of these measure are taken in an effort to provide you with optimal care, which includes your follow-up. Under all circumstances we always encourage you to contact your private physician who remains a resource for coordinating your care. When calling for follow-up care, please make the office aware that this follow-up is from your recent emergency room visit. If for any reason you are refused follow-up, please contact the [facility] Emergency Department at and asked to speak to the emergency department charge nurse. [facility] [address] [place] [id number] [facility] [address] [place] [address] Plan: 1. You were evaluated today on an emergent basis. Your complaints of Covid positive and possible treatment was evaluated. You are prediabetic and did not have significant symptoms or risk factors to warrant a monoclonal antibody. I would advise you to get plenty fluids and rest. You can use Tylenol or Motrin as needed for the aches and pain of Covid. As we discussed you need to get a portable oxygen saturation device to monitor your oxygen level. If it drifts below 90% you need to come into the emergency department. You need to continue your self-isolation. 2. You can alternate Tylenol and ibuprofen as needed for pain and fever management. 3. We encourage you to follow up with your primary care provider and/or recommended specialist in the next few days for re-evaluation and further care/management. 4. If your symptoms should worsen, new symptoms develop or any of the signs and symptoms we discussed should arise please return to the emergency room or call 911 (if needed). Sepsis Event Note (ED) - Evaluation Sepsis Screening Result: No Definite Risk
[2021-04-22 14:04] VITALS: BP 130/76; PULSE 88
== END 2021-04-22 13:55 | disposition home or self-care (01) ==
LOC: MW.ED 12:28
DX: U07.1 COVID-19 (principal)
CPT/HCPCS: 99283